=== PATIENT | male | born 1985 | race Caucasian/White ===

== ENCOUNTER 2016-05-11 21:46 | Inpatient (IN) | payer SELFPAY ==
[~2016-05-11] VITALS: Ht 190.5 cm; Wt 89.1 kg
[~2016-05-11 21:46] MED LIST: AMPH20TA PO; no home medications
[2016-05-11 23:14] LABS: MEAN CORPUSCULAR HEMOGLOBIN 33.8 pg (27.0-33.0); MEAN CORPUSCULAR HGB CONC 34.4 g/dl (32.0-36.5); MEAN CORPUSCULAR VOLUME 98.4 fl (80.0-96.0); RED CELL DISTRIBUTION WIDTH 12.7 % (11.5-14.5); WHITE BLOOD COUNT 6.1 K/mm3 (4.0-10.0)
[2016-05-11 23:33] LABS: AMPHETAMINES LEVEL URINE NEGATIVE (NEGATIVE); BENZODIAZEPINES URINE NEGATIVE (NEGATIVE); COCAINE METABOLITE URINE NEGATIVE (NEGATIVE); CONTROL LINE INT CTR LINE PRESENT; METHADONE URINE NEGATIVE (NEGATIVE); OPIATES URINE NEGATIVE (NEGATIVE); TRICYCLIC ANTIDEPRESS URINE NEGATIVE (NEGATIVE)
[2016-05-11 23:46] LABS: ALBUMIN 4.2 GM/DL (3.2-5.2); ALBUMIN/GLOBULIN RATIO 1.24 (1.00-1.93); ALKALINE PHOSPHATASE 93 U/L (45-117); ALT/SGPT 66 U/L (12-78); ANION GAP 8 MEQ/L (8-16); AST/SGOT 39 U/L (15-37); BILIRUBIN,DIRECT < 0.1 MG/DL (0.0-0.2); BILIRUBIN,TOTAL 0.2 MG/DL (0.2-1.0); BLOOD UREA NITROGEN 6 MG/DL (7-18); CALCIUM LEVEL 8.8 MG/DL (8.5-10.1); CARBON DIOXIDE LEVEL 32 MEQ/L (21-32); CHLORIDE LEVEL 103 MEQ/L (98-107); CREATININE FOR GFR 0.99 MG/DL (0.70-1.30); GLOMERULAR FILTRATION RATE > 60.0 (>60); GLUCOSE, FASTING 104 MG/DL (70-105); POTASSIUM SERUM 4.4 MEQ/L (3.5-5.1); SODIUM LEVEL 143 MEQ/L (136-145); TOTAL PROTEIN 7.6 GM/DL (6.4-8.2)
[2016-05-11] MEDS ORDERED: OXAZEPAM 15 MG CAP As Ordered ONE (23:55)
[2016-05-12] MEDS ORDERED: MAALOX 30 ML SUSP *UDC PO PRN (16:30)
[2016-05-12] MEDS ORDERED: MOM 30ML SUSPENSION UDC PO PRN (16:30)
[2016-05-12 20:35] VITALS: BP 145/91
--- NOTE | 2016-05-12 20:39 | EDDOCDS ---
Physician Documentation [facility] Name: Melchor Leary Age: 30 yrs Sex: Male : 1985 Arrival Date: 05/11/2016 Time: 21:46 Bed OBSERVATION Private MD: No Pcp Disposition: 05/12/16 16:59 Hospitalization ordered by Elio Pro for Inpatient Admission. Preliminary diagnosis is Suicidal ideations. - Bed requested for Admit. - Status is Inpatient Admission. rw1 - Condition is Stable. - Problem is new. - Symptoms are unchanged. HPI: 05/11 22:23 This 30 yrs old Male presents to ER via Walkin/Carried/Asstd with complaints pc of Psych Problem. 22:23 The history is obtained from the patient. A reliable history and/or examination was not pc able to be obtained, due to the patient's level of intoxication. He is an alcoholic, drinking beer daily at high volumes, starting 9am every day with withdrawal symptoms by 1pm if he doesn't. He has been rehab in the past but none recently and was not able to stay sober for more than a week. He says he has no where to go, that he has burned every bridge. He told the materials handling coordinator that he hears Jerri Roger's voice calling him a skateboarder, but when pressed about the voices in more detail, he turns away and says "I don't know". He does not appear to be responding to internal stimuli. He denies SI or HI. 22:28 The patient has experienced similar episodes in the past, with an ED visit for alcohol pc intoxication last year and an admission to [facility] in 2014 for depression with SI. The patient has not recently seen a physician. Historical: - Allergies: no known allergies; - Home Meds: 1. none - PMHx: Alcoholism; - PSHx: none; - The history from nurses notes was reviewed: and I agree with what is documented. - Social history: Smoking status: Patient uses tobacco products, heavy tobacco smoker. Patient uses alcohol on a daily basis. 12 beer/day. street drugs, marijuana, No barriers to communication noted, The patient speaks fluent Polish. - : The pt / caregiver states he / she is not on anticoagulants. Home medication list is obtained from the patient. - Hospitalizations: : No recent hospitalization is reported. - Exposure Risk Screening:: None identified. - Immunization history:: Last tetanus immunization: up to date. - Family history: Not pertinent. - Social history:: the patient smokes cigarettes the patient drinks alcohol, including recently, regularly to excess, the patient does not use illicit drugs. ROS: 22:28 All systems are negative except as listed. The psychiatric and neurological components pc are also addressed in the HPI. Exam: 22:28 General Appearance: alert, no acute distress, strong odor of alcohol in room and on pc breath. 22:28 ENT: ear, nose and throat normal, pharynx normal. 22:28 Eyes: pupils equal, round and reactive to light, extraocular motions intact. 22:28 Neck: The exam reveals no acute abnormalities. ROM is normal and painless. No nuchal rigidity is noted.. 22:28 Respiratory: breathing is even and unlabored, breath sounds are normal. 22:28 Cardiovascular: regular pulse rate, regular heart rhythm, normal heart sounds, equal and full pulses bilaterally. 22:28 Abdomen: soft, non-tender, no organomegaly, normal bowel sounds, no masses appreciated, no hernias palpated with/without gravity or Valsalva 22:28 Skin: skin color is normal, warm, dry. 22:28 Extremities: The extremities have a grossly normal appearance, are non-tender, without acute ROM abnormalities. 22:28 Neuro: alert, oriented to person, place and time, cranial nerves normal as tested, no motor deficits, no sensory deficits. 22:28 Psych: mood is normal, affect is appropriate. Vital Signs: 21:49 BP 149 / 87; Pulse 109; Resp 18; Temp 97.6(O); Pulse Ox 98% on R/A; Weight 86.18 kg / ct3 189.99 lbs (R); Height 6 ft. 3 in. (190.50 cm) (R); Pain 0/10; 13 00:00 BP 139 / 74; Pulse 91; Resp 16; Pulse Ox 98% ; Pain 0/10; slm 06:07 BP 144 / 69; Pulse 86; Resp 18; Temp 95.6; Pulse Ox 96% ; Pain 0/10; slm 17:28 BP 128 / 77; Pulse 60; Resp 18; Temp 98.0(O); Pulse Ox 97% on R/A; Pain 0/10; rn1 20:19 BP 142 / 86; Pulse 68; Resp 16; Temp 97.8(O); Pulse Ox 96% on R/A; rw1 05/11 21:49 Body Mass Index 23.75 (86.18 kg, 190.50 cm) ct3 MDM: 05/11 22:24 Acetaminophen Level Ordered. EDMS 22:24 Basic Metabolic Profile Ordered. EDMS 22:24 Complete Blood Count Ordered. EDMS 22:24 Drug Eval Toxicology ED Only Ordered. EDMS 22:24 Ethyl Alcohol (ethanol) Ordered. EDMS 22:24 Liver Profile Ordered. EDMS 22:24 Salicylate Level Ordered. EDMS 22:24 Thyroid Stimulating Hormone Ordered. EDMS 22:28 Differential diagnosis: alcohol intoxication, Substance Abuse homeless, reported pc auditory hallucinations. Plan: labs, PFS eval. 23:24 Complete Blood Count Reviewed. pc 23:35 Drug Eval Toxicology ED Only Reviewed. pc 23:48 Acetaminophen Level Reviewed. pc 23:48 Basic Metabolic Profile Reviewed. pc 23:48 Ethyl Alcohol (ethanol) Reviewed. pc 23:48 Liver Profile Reviewed. pc 23:48 Salicylate Level Reviewed. pc 23:48 Thyroid Stimulating Hormone Reviewed. pc 23:49 Oxazepam 30 mg PO once ordered. pc 23:51 Consult PFS/PSA/Woven Label Designer ordered. [facility] 23:51 Consult PFS/PSA/Woven Label Designer: Patient's case requires discussion with on-call [facility] Psychiatrist ordered. 23:51 PSA/PFS to call Nursing Pt Sitter, to enter patient data on [place] Safe Act if patient [facility] involuntarily admitted or transferred for SI or HI ordered. 23:51 Confirm accurate psychiatric medication list and times of last dosage ordered. [facility] 23:51 Detain Pt Until Medically/PFS Cleared ordered. [facility] 05/12 01:05 Financial registration complete. [facility] 01:58 PENDING SALE TO [facility] Payment Agreement was scanned into [employer] and attached to record. [facility] 05:15 REGULAR DIET PLASTIC LAMAS+DIET ordered. EDMS 07:53 ED course: pt signed out to me. pending psych disposition. pt with no complaints. mlg. ml 11:17 REGULAR DIET PLASTIC LAMAS+DIET ordered. EDMS 16:35 Admit to [facility]: ordered. EDMS 16:35 REGULAR DIET ordered. EDMS 17:07 REGULAR DIET PLASTIC LAMAS+DIET ordered. EDMS 17:17 E Legal paperwork was scanned into [employer] and attached to record. dev 19:21 Consult PFS/PSA/Woven Label Designer: Patient's case requires discussion with on-call [facility] Psychiatrist complete. 19:21 PSA/PFS to call Nursing Pt Sitter, to enter patient data on [place] Safe Act if patient jfb involuntarily admitted or transferred for SI or HI complete. 19:22 Consult PFS/PSA/Woven Label Designer complete. [facility]fb Administered Medications: 05/11 23:59 Drug: Oxazepam 30 mg [oxazepam 15 mg capsule (2 caps)] Route: PO; [facility] 05/12 20:22 Follow up: Response: No Adverse Reaction rw1 Signatures: Dispatcher [employer] EDMS Wilfrido Martinez MD MD pc Lundborg-Gray, Maja, MD MD ml LaFontaine, Jon, [facility] Blank LPN LPN rw1 Mark Anthony Marie, DO [id number] Pura Segovia RN RN rs3 Becca Ayala, [facility] Alanna Sung LPN [facility] The chart was reviewed and I authenticate all verbal orders and agree with the evaluation and treatment provided.Attachments: 01:58 PENDING SALE TO [facility] Payment Agreement [facility] MTDD
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
[2016-05-12] MEDS: NICOTINE 21MG/24HR 1 EA TRANSDERMAL TD SCH (22:23)
[2016-05-12] MEDS: chlordiazePOXIDE 25 MG CAP PO PRN (22:26)
[2016-05-12] MEDS: ACETAMINOPHEN TAB 650MG DOSE (2X325MG) PO PRN (22:27)
[2016-05-12] MEDS: traZODone 50 MG TAB PO PRN (22:57)
[2016-05-13 07:10] VITALS: BP 137/77
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
[2016-05-13] MEDS: NICOTINE 21MG/24HR 1 EA TRANSDERMAL TD SCH (09:32)
--- NOTE | 2016-05-13 10:54 | HPEPDOC ---
Medical History and Physical Date of Admission May 12, 2016 at 20:35 History and Physical PCP: None ATTENDING: Dr. Damian Manriquez HPI: 30yoM admitted to [facility] for unspecified depressive disorder, being medically examined today. No acute medical complaints today. Denies any fevers, chills, weakness, fatigue, REDDY, CP, SOB, cough, palpitations, abdominal pain, N/V /D or changes in bowel or bladder habits. PMHx: History of alcohol use Tobacco use PSHX: Denies SOCHX: Resides in: [facility] Marital Status: Single Kids: 3 Employment: [employer], currently unemployed Tobacco use: One pack per day ETOH: At least 12 beers per day, usually more for the past 1-1/2-2 years Illicit Drugs: Marijuana IV Drug Use: Denies Tattoos done unprofessionally: 1 FAMHX: Mother: Alive, history of leukemia Father: Alive, chronic bronchitis, alcoholism Siblings: 2 brothers, 2 sisters Alive, history of alcoholism. One brother history of heart failure. One sister heroin overdose. Children: Alive, well Unexpected deaths due to medical reasons: None. ROS: As noted in HPI, otherwise 11pt ROS of systems reviewed and unremarkable. PE: GEN: 30yoM, appears stated age. Well-nourished, well developed. No acute distress. Alert and oriented x 3. Pleasant, interactive. HEENT: Normocephalic, atraumatic. Pupils are equal, round, and reactive to light. Extraocular movements are intact. No nystagmus appreciated. Sclera are nonicteric. Conjunctiva without injection. Nose midline. Nasal turbinates without bogginess. EACs both patent BL. TMs both visualized and snow with good cone of light, no bulging or erythema. No facial asymmetry. Moist mucous membranes. Dentition fair. Pharynx pink and moist, no cobblestoning. Neck supple , trachea midline. No lymphadenopathy or thyromegaly appreciated. CHEST: Regular rate and rhythm, +S1, +S2 LUNGS: Clear to auscultation bilaterally. No wheezes, rales, or rhonchi. Breathing appears symmetric and easy. Patient is speaking in full sentences. No accessory muscle use. ABD: Round, soft, non-tender, non-distended. +Bowel sounds throughout. No rebound or guarding. No costovertebral angle tenderness. EXT: Pulses 2+ bilaterally dorsalis pedis and radial. No lower extremity edema appreciated. SKIN: [place], dry, warm. Capillary refill <2sec. No rashes. NEURO: Alert and oriented x 3. Cranial nerves III-XII are intact. No focal deficits appreciated. EKG: Pending. A&P: 30yoM admitted to [facility] for unspecified depressive disorder, 1. Psych. Plan per Psychiatry. Obtain baseline EKG to assure the safety of psychiatric medications as they can prolong the QT interval. 2. Nicotine dependence. Patch available. 3. History of tattoo done unprofessionally. Patient agrees to HIV and hepatitis screening. 4. Follow up. No Primary Care Provider. Will attempt to establish PCP on discharge. 5. Patient agrees to influenza vaccination. 6. Staff member present throughout exam, Jaison villareal. Vital Signs Vital Signs Label Value Date Time Patient Temperature 97.7 degrees F 05/13/16 0710 Temperature Source Tympanic 05/13/16 0710 Pulse 74 05/13/16 0710 Respiratory Rate 18 bpm 05/13/16 0710 Blood Pressure Assessment 137/77 (97) 05/13/16 0710 Laboratory Data Labs 24H Item Value Date Time White Blood Count 6.1 K/mm3 05/11/16 2300 Red Blood Count 4.81 M/mm3 05/11/16 2300 Hemoglobin 16.3 g/dl 05/11/16 2300 Hematocrit 47.3 % 05/11/16 2300 Mean Corpuscular Volume 98.4 fl H 05/11/16 2300 Mean Corpuscular Hemoglobin 33.8 pg H 05/11/16 230 Mean Corpuscular Hemoglobin Concent 34.4 g/dl 05/11/16 230 Red Cell Distribution Width 12.7 % 05/11/16 230 Platelet Count 267 k/mm3 05/11/16 230 Sodium Level 143 MEQ/L 05/11/16 2300 Potassium Level 4.4 MEQ/L 05/11/16 230 Chloride Level 103 MEQ/L 05/11/16 230 Carbon Dioxide Level 32 MEQ/L 05/11/16 230 Anion Gap 8 MEQ/L 05/11/16 230 Blood Urea Nitrogen 6 MG/DL L 05/11/16 2300 Creatinine 0.99 MG/DL 05/11/162299 Glomerular Filtration Rate > 60.0 05/11/162299 Fasting Glucose 104 MG/DL 05/11/160 Calcium Level 8.8 MG/DL 05/11/162299 Total Bilirubin 0.2 MG/DL 05/11/162299 Direct Bilirubin < 0.1 MG/DL 05/11/162299 Aspartate Amino Transf (AST/SGOT) 39 U/L H 05/11/162299 Alanine Aminotransferase (ALT/SGPT) 66 U/L 05/11/162299 Alkaline Phosphatase 93 U/L 05/11/162299 Total Protein 7.6 GM/DL 05/11/162299 Albumin 4.2 GM/DL 05/11/162299 Albumin/Globulin Ratio 1.24 05/11/162299 Thyroid Stimulating Hormone (TSH) 1.040 uIU/ML 05/11/162299 Salicylates Level 3.0 MG/DL L 05/11/162299 Urine Opiates Screen NEGATIVE 05/11/162306 Urine Methadone Screen NEGATIVE 05/11/162306 Acetaminophen Level < 2.0 UG/ML L 05/11/162299 Urine Barbiturates, Qualitative NEGATIVE 05/11/162306 Urine Tricyclic Antidepressants NEGATIVE 05/11/162306 Urine Amphetamine Level NEGATIVE 05/11/162306 Urine Benzodiazepines Screen NEGATIVE 05/11/162306 Urine Cocaine Metabolite NEGATIVE 05/11/162306 Urine Cannabinoids NEGATIVE 05/11/162306 Ethyl Alcohol Level 0.245 % H 05/11/162299 Home Medications No Active Prescriptions or Reported Meds Allergies Coded Allergies: No Known Allergies (Unverified , 07/19/14) Pauly Polo May 13, 2016 10:54
[2016-05-13] MEDS ORDERED: INFLUENZA QUADRIVALENT PF VACCINE 0.5ML SYRINGE/VIAL (90686) IM ONE (11:00)
[2016-05-13] MEDS: chlordiazePOXIDE 25 MG CAP PO PRN (11:09)
[2016-05-13 11:28] VITALS: BP 124/84
[2016-05-13 14:12] LABS: CONTROL LINE INT CTR LINE PRESENT; HIV SCRN NEGATIVE (NEGATIVE); HIV SCRN1 NEGATIVE (NEGATIVE)
[2016-05-13 18:00] VITALS: BP 131/73
[2016-05-13] MEDS: PALIPERIDONE 3 MG ER TAB (INVEGA) PO SCH (20:51)
[2016-05-13] MEDS: traZODone 50 MG TAB PO PRN (21:19)
[2016-05-14 06:40] VITALS: BP 123/80
--- NOTE | 2016-05-14 06:45 | IPNPDOC ---
[facility] Progress Note Progress Note DATE OF SERVICE: 05/14/16 Subjective: Patient reports ongoing anxiety today. Patient is aware court has been postponed. She reports he and his girlfriend have talked and he may be able to return to her home on discharge. Patient expresses his confusion as to why Jerri Roger would be contacting him. He reports thinking that the [place] government was testing new technology on him and allowing Jerri Roger to talk to him telepathically. He had the idea that maybe she wanted to him. Patient felt that the only way the voices would stop as if he found Jerri asked her why she was speaking to him telepathically. Patient was educated on the pathophysiology of schizophrenia. Patient acknowledged understanding and was reassured this was a medical issue. Patient does not hold onto these paranoid ideations as delusions. He is reassured and his confusion seems resolved. Patient educated on the importance of medication compliance. Patient is medication compliant. He reports no medication side effects since initiating Invega. He reports improved sleep. Appetite is within normal limits. Patient reports no REDDY, CP, Abd pain, or N/V/C/D. Objective: VITAL SIGNS: See below. NEW TEST RESULTS: None CURRENT MEDICATIONS: See below. MENTAL STATUS EXAMINATION: Patient is a 28-year-old male who appears stated age, dressed in hospital attire, anxious but cooperative Speech: Is regular rate and rhythm, spontaneous Thought processes: Linear and goal-directed Thought content: Very confused as to why he is hearing the voice of Jerri oRger Orientation: Alert and oriented to time, place and person and situation Recent and remote memory: Intact. Immediate short-term and long-term memory is: intact. Attention span and concentration: fair. Language: Normal. Fund of knowledge: good. Mood: Dysthymic Affect: Anxious Assessment: -Schizophrenia -Alcohol use disorder, severe -Alcohol withdrawal -Cannabis use disorder, severe Plan: ----- 1.~ ~ Patient was admitted on a 9.30 legal status, 2.~ ~ With patients permission, family contacted and database expanded. 3.~ ~ Continue Invega 3 mg by mouth daily at bedtime for psychosis. ~ ~ Continue Trazodone 100 mg by mouth daily at bedtime when necessary insomnia. 4.~ ~ Patient will be provided with protected environment. 5.~ ~ Patient will be treated with individual, group, and milieu therapies. 6.~ ~ Patient will receive supportive psych-education. 7.~ ~ Outpatient follow-up treatment will be strongly recommended. Estimated length of stay between 5-7 days TIME SPENT: [30] minutes. Vital Signs Vital Signs Date Time Temp Pulse Resp B/P Pulse Ox O2 Delivery O2 Flow Rate FiO2 05/14/16 06:40 96.5 72 18 123/80 05/12/16 20:35 97 Room Air Current Medications Current Medications Acetaminophen (Tylenol Tab) 650 mg Q6HP PRN PO HEADACHE or DISCOMFORT Last administered on 05/12/16 22:27; Start 05/12/16 at 16:30; Stop 06/11/16 at 16:29 Al Hydrox/Mg Hydrox/Simethicone (Mylanta) 30 ml Q4HP PRN PO HEARTBURN/ INDIGESTION; Start 05/12/16 at 16:30; Stop 06/11/16 at 16:29 Chlordiazepoxide (Librium) 25 mg QIDP PRN PO ALCOHOL WITHDRAWLS Last administered on 05/13/16 11:09; Start 05/12/16 at 16:30; Stop 05/19/16 at 16:29 Folic Acid (Folic Acid) 1 mg DAILY PO ; Start 05/14/16 at 09:00; Stop 06/13/16 at 08:59; Status UNV Home Med (Med Rec Complete!) ASDIRECTED XX ; Start 05/12/16 at 17:15; Stop at 20:39; Status DC Magnesium Hydroxide (Milk Of Magnesia) 30 ml DAILYPRN PRN PO CONSTIPATION; Start 05/12/16 at 16:30; Stop 06/11/16 at 16:29 Multivitamins (Theragram-M) 1 tab DAILY PO ; Start 05/14/16 at 09:00; Stop 06/13 at 08:59; Status UNV Nicotine (Nicoderm Cq 21mg) 1 patch DAILY TD Last administered on 05/13/16 09: 32; Start 05/12/16 at 09:00; Stop 06/11/16 at 08:59 Paliperidone (Invega) 3 mg QHS PO Last administered on 05/13/16 20:51; Start 05/13/16 at 21:00; Stop 06/12/16 at 20:59 Thiamine HCl (Thiamine HCl) 100 mg DAILY PO ; Start 05/14/16 at 09:00; Stop at 08:59; Status UNV Trazodone HCl (Desyrel) 100 mg QHSP PRN PO INSOMNIA Last administered on 21:19; Start 05/12/16 at 16:30; Stop 06/11/16 at 16:29 Allergies Coded Allergies: No Known Allergies (Unverified , 07/19/14) YENIFER CONRAD MD May 14, 2016 06:45
[2016-05-14] MEDS: NICOTINE 21MG/24HR 1 EA TRANSDERMAL TD SCH (09:58)
[2016-05-14] MEDS: THIAMINE 100 MG TAB PO SCH (09:58)
[2016-05-14] MEDS: MULTIVITAMINS/MINERALS THERAP 1 TAB PO SCH (09:58)
[2016-05-14] MEDS: FOLIC ACID 1 MG TAB PO SCH (09:58)
[2016-05-14] MEDS: ACETAMINOPHEN TAB 650MG DOSE (2X325MG) PO PRN ×2 (10:00→20:28)
[2016-05-14 18:00] VITALS: BP 120/65
[2016-05-14] MEDS: PALIPERIDONE 3 MG ER TAB (INVEGA) PO SCH (20:27)
[2016-05-14] MEDS: traZODone 50 MG TAB PO PRN (20:27)
--- NOTE | 2016-05-14 21:39 | EDDOCDS ---
Physician Documentation [facility] Name: Melchor Leary Age: 30 yrs Sex: Male : 1985 Arrival Date: 05/11/2016 Time: 21:46 Bed OBSERVATION Private MD: No Pcp Disposition: 05/12/16 16:59 Hospitalization ordered by Elio Pro for Inpatient Admission. Preliminary diagnosis is Suicidal ideations. - Bed requested for Admit. - Status is Inpatient Admission. rw1 - Condition is Stable. - Problem is new. - Symptoms are unchanged. HPI: 05/11 22:23 This 30 yrs old Male presents to ER via Walkin/Carried/Asstd with complaints pc of Psych Problem. 22:23 The history is obtained from the patient. A reliable history and/or examination was not pc able to be obtained, due to the patient's level of intoxication. He is an alcoholic, drinking beer daily at high volumes, starting 9am every day with withdrawal symptoms by 1pm if he doesn't. He has been rehab in the past but none recently and was not able to stay sober for more than a week. He says he has no where to go, that he has burned every bridge. He told the rehab trainer that he hears Jerri Roger's voice calling him a skateboarder, but when pressed about the voices in more detail, he turns away and says "I don't know". He does not appear to be responding to internal stimuli. He denies SI or HI. 22:28 The patient has experienced similar episodes in the past, with an ED visit for alcohol pc intoxication last year and an admission to [facility] in 2014 for depression with SI. The patient has not recently seen a physician. Historical: - Allergies: no known allergies; - Home Meds: 1. none - PMHx: Alcoholism; - PSHx: none; - The history from nurses notes was reviewed: and I agree with what is documented. - Social history: Smoking status: Patient uses tobacco products, heavy tobacco smoker. Patient uses alcohol on a daily basis. 12 beer/day. street drugs, marijuana, No barriers to communication noted, The patient speaks fluent Czech. - : The pt / caregiver states he / she is not on anticoagulants. Home medication list is obtained from the patient. - Hospitalizations: : No recent hospitalization is reported. - Exposure Risk Screening:: None identified. - Immunization history:: Last tetanus immunization: up to date. - Family history: Not pertinent. - Social history:: the patient smokes cigarettes the patient drinks alcohol, including recently, regularly to excess, the patient does not use illicit drugs. ROS: 22:28 All systems are negative except as listed. The psychiatric and neurological components pc are also addressed in the HPI. Exam: 22:28 General Appearance: alert, no acute distress, strong odor of alcohol in room and on pc breath. 22:28 ENT: ear, nose and throat normal, pharynx normal. 22:28 Eyes: pupils equal, round and reactive to light, extraocular motions intact. 22:28 Neck: The exam reveals no acute abnormalities. ROM is normal and painless. No nuchal rigidity is noted.. 22:28 Respiratory: breathing is even and unlabored, breath sounds are normal. 22:28 Cardiovascular: regular pulse rate, regular heart rhythm, normal heart sounds, equal and full pulses bilaterally. 22:28 Abdomen: soft, non-tender, no organomegaly, normal bowel sounds, no masses appreciated, no hernias palpated with/without gravity or Valsalva 22:28 Skin: skin color is normal, warm, dry. 22:28 Extremities: The extremities have a grossly normal appearance, are non-tender, without acute ROM abnormalities. 22:28 Neuro: alert, oriented to person, place and time, cranial nerves normal as tested, no motor deficits, no sensory deficits. 22:28 Psych: mood is normal, affect is appropriate. Vital Signs: 21:49 BP 149 / 87; Pulse 109; Resp 18; Temp 97.6(O); Pulse Ox 98% on R/A; Weight 86.18 kg / ct3 189.99 lbs (R); Height 6 ft. 3 in. (190.50 cm) (R); Pain 0/10; 13 00:00 BP 139 / 74; Pulse 91; Resp 16; Pulse Ox 98% ; Pain 0/10; slm 06:07 BP 144 / 69; Pulse 86; Resp 18; Temp 95.6; Pulse Ox 96% ; Pain 0/10; slm 17:28 BP 128 / 77; Pulse 60; Resp 18; Temp 98.0(O); Pulse Ox 97% on R/A; Pain 0/10; rn1 20:19 BP 142 / 86; Pulse 68; Resp 16; Temp 97.8(O); Pulse Ox 96% on R/A; rw1 05/11 21:49 Body Mass Index 23.75 (86.18 kg, 190.50 cm) ct3 MDM: 05/11 22:24 Acetaminophen Level Ordered. EDMS 22:24 Basic Metabolic Profile Ordered. EDMS 22:24 Complete Blood Count Ordered. EDMS 22:24 Drug Eval Toxicology ED Only Ordered. EDMS 22:24 Ethyl Alcohol (ethanol) Ordered. EDMS 22:24 Liver Profile Ordered. EDMS 22:24 Salicylate Level Ordered. EDMS 22:24 Thyroid Stimulating Hormone Ordered. EDMS 22:28 Differential diagnosis: alcohol intoxication, Substance Abuse homeless, reported pc auditory hallucinations. Plan: labs, PFS eval. 23:24 Complete Blood Count Reviewed. pc 23:35 Drug Eval Toxicology ED Only Reviewed. pc 23:48 Acetaminophen Level Reviewed. pc 23:48 Basic Metabolic Profile Reviewed. pc 23:48 Ethyl Alcohol (ethanol) Reviewed. pc 23:48 Liver Profile Reviewed. pc 23:48 Salicylate Level Reviewed. pc 23:48 Thyroid Stimulating Hormone Reviewed. pc 23:49 Oxazepam 30 mg PO once ordered. pc 23:51 Consult PFS/PSA/Tree And Shrub Technician ordered. [facility] 23:51 Consult PFS/PSA/Tree And Shrub Technician: Patient's case requires discussion with on-call [facility] Psychiatrist ordered. 23:51 PSA/PFS to call Nursing Oil Paint Shader, to enter patient data on [place] Safe Act if patient [facility] involuntarily admitted or transferred for SI or HI ordered. 23:51 Confirm accurate psychiatric medication list and times of last dosage ordered. [facility] 23:51 Detain Pt Until Medically/PFS Cleared ordered. [facility] 05/12 01:05 Financial registration complete. [facility] 01:58 [facility] Payment Agreement was scanned into [employer] and attached to record. [facility] 05:15 REGULAR DIET PLASTIC LAMAS+DIET ordered. EDMS 07:53 ED course: pt signed out to me. pending psych disposition. pt with no complaints. mlg. ml 11:17 REGULAR DIET PLASTIC LAMAS+DIET ordered. EDMS 16:35 Admit to [facility]: ordered. EDMS 16:35 REGULAR DIET ordered. EDMS 17:07 REGULAR DIET PLASTIC LAMAS+DIET ordered. EDMS 17:17 E Legal paperwork was scanned into [employer] and attached to record. dev 19:21 Consult PFS/PSA/Tree And Shrub Technician: Patient's case requires discussion with on-call [facility] Psychiatrist complete. 19:21 PSA/PFS to call Nursing Oil Paint Shader, to enter patient data on [place] Safe [place] if patient jfb involuntarily admitted or transferred for SI or HI complete. 19:22 Consult PFS/PSA/Tree And Shrub Technician complete. jfb Administered Medications: 05/11 23:59 Drug: Oxazepam 30 mg [oxazepam 15 mg capsule (2 caps)] Route: PO; [facility] 05/12 20:22 Follow up: Response: No Adverse Reaction rw1 Signatures: Dispatcher [employer] EDMS Wilfrido Martinez MD MD pc Lundborg-Gray, Maja, MD MD ml LaFontaine, Jon, [facility] [place] Blank LPN LPN rw1 Mark Anthony Marie, DO mm11 Pura Segovia RN RN rs3 Becca Ayala, [facility]ah[facility] Jiang [facility] Alanna Sung LPN [facility] The chart was reviewed and I authenticate all verbal orders and agree with the evaluation and treatment provided.Attachments: 01:58 [facility] Payment Agreement [facility] Chart Complete MTDD
--- NOTE | 2016-05-14 21:39 | EDDOCDS ---
Physician Documentation [facility] Name: Melchor Leary Age: 30 yrs Sex: Male : 1985 Arrival Date: 05/11/2016 Time: 21:46 Bed OBSERVATION Private MD: No Pcp Disposition: 05/12/16 16:59 Hospitalization ordered by Elio Pro for Inpatient Admission. Preliminary diagnosis is Suicidal ideations. - Bed requested for Admit. - Status is Inpatient Admission. rw1 - Condition is Stable. - Problem is new. - Symptoms are unchanged. HPI: 05/11 22:23 This 30 yrs old Male presents to ER via Walkin/Carried/Asstd with complaints pc of Psych Problem. 22:23 The history is obtained from the patient. A reliable history and/or examination was not pc able to be obtained, due to the patient's level of intoxication. He is an alcoholic, drinking beer daily at high volumes, starting 9am every day with withdrawal symptoms by 1pm if he doesn't. He has been rehab in the past but none recently and was not able to stay sober for more than a week. He says he has no where to go, that he has burned every bridge. He told the bologna lacer that he hears Jerri Roger's voice calling him a skateboarder, but when pressed about the voices in more detail, he turns away and says "I don't know". He does not appear to be responding to internal stimuli. He denies SI or HI. 22:28 The patient has experienced similar episodes in the past, with an ED visit for alcohol pc intoxication last year and an admission to [facility] in 2014 for depression with SI. The patient has not recently seen a physician. Historical: - Allergies: no known allergies; - Home Meds: 1. none - PMHx: Alcoholism; - PSHx: none; - The history from nurses notes was reviewed: and I agree with what is documented. - Social history: Smoking status: Patient uses tobacco products, heavy tobacco smoker. Patient uses alcohol on a daily basis. 12 beer/day. street drugs, marijuana, No barriers to communication noted, The patient speaks fluent Slovenian. - : The pt / caregiver states he / she is not on anticoagulants. Home medication list is obtained from the patient. - Hospitalizations: : No recent hospitalization is reported. - Exposure Risk Screening:: None identified. - Immunization history:: Last tetanus immunization: up to date. - Family history: Not pertinent. - Social history:: the patient smokes cigarettes the patient drinks alcohol, including recently, regularly to excess, the patient does not use illicit drugs. ROS: 22:28 All systems are negative except as listed. The psychiatric and neurological components pc are also addressed in the HPI. Exam: 22:28 General Appearance: alert, no acute distress, strong odor of alcohol in room and on pc breath. 22:28 ENT: ear, nose and throat normal, pharynx normal. 22:28 Eyes: pupils equal, round and reactive to light, extraocular motions intact. 22:28 Neck: The exam reveals no acute abnormalities. ROM is normal and painless. No nuchal rigidity is noted.. 22:28 Respiratory: breathing is even and unlabored, breath sounds are normal. 22:28 Cardiovascular: regular pulse rate, regular heart rhythm, normal heart sounds, equal and full pulses bilaterally. 22:28 Abdomen: soft, non-tender, no organomegaly, normal bowel sounds, no masses appreciated, no hernias palpated with/without gravity or Valsalva 22:28 Skin: skin color is normal, warm, dry. 22:28 Extremities: The extremities have a grossly normal appearance, are non-tender, without acute ROM abnormalities. 22:28 Neuro: alert, oriented to person, place and time, cranial nerves normal as tested, no motor deficits, no sensory deficits. 22:28 Psych: mood is normal, affect is appropriate. Vital Signs: 21:49 BP 149 / 87; Pulse 109; Resp 18; Temp 97.6(O); Pulse Ox 98% on R/A; Weight 86.18 kg / ct3 189.99 lbs (R); Height 6 ft. 3 in. (190.50 cm) (R); Pain 0/10; 13 00:00 BP 139 / 74; Pulse 91; Resp 16; Pulse Ox 98% ; Pain 0/10; slm 06:07 BP 144 / 69; Pulse 86; Resp 18; Temp 95.6; Pulse Ox 96% ; Pain 0/10; slm 17:28 BP 128 / 77; Pulse 60; Resp 18; Temp 98.0(O); Pulse Ox 97% on R/A; Pain 0/10; rn1 20:19 BP 142 / 86; Pulse 68; Resp 16; Temp 97.8(O); Pulse Ox 96% on R/A; rw1 05/11 21:49 Body Mass Index 23.75 (86.18 kg, 190.50 cm) ct3 MDM: 05/11 22:24 Acetaminophen Level Ordered. EDMS 22:24 Basic Metabolic Profile Ordered. EDMS 22:24 Complete Blood Count Ordered. EDMS 22:24 Drug Eval Toxicology ED Only Ordered. EDMS 22:24 Ethyl Alcohol (ethanol) Ordered. EDMS 22:24 Liver Profile Ordered. EDMS 22:24 Salicylate Level Ordered. EDMS 22:24 Thyroid Stimulating Hormone Ordered. EDMS 22:28 Differential diagnosis: alcohol intoxication, Substance Abuse homeless, reported pc auditory hallucinations. Plan: labs, PFS eval. 23:24 Complete Blood Count Reviewed. pc 23:35 Drug Eval Toxicology ED Only Reviewed. pc 23:48 Acetaminophen Level Reviewed. pc 23:48 Basic Metabolic Profile Reviewed. pc 23:48 Ethyl Alcohol (ethanol) Reviewed. pc 23:48 Liver Profile Reviewed. pc 23:48 Salicylate Level Reviewed. pc 23:48 Thyroid Stimulating Hormone Reviewed. pc 23:49 Oxazepam 30 mg PO once ordered. pc 23:51 Consult PFS/PSA/Hot Saw Operator ordered. [facility] 23:51 Consult PFS/PSA/Hot Saw Operator: Patient's case requires discussion with on-call [facility] Psychiatrist ordered. 23:51 PSA/PFS to call Nursing Assurance Senior, to enter patient data on [place] Safe Act if patient [facility] involuntarily admitted or transferred for SI or HI ordered. 23:51 Confirm accurate psychiatric medication list and times of last dosage ordered. [facility] 23:51 Detain Pt Until Medically/PFS Cleared ordered. [facility] 05/12 01:05 Financial registration complete. [facility] 01:58 [facility] Payment Agreement was scanned into [employer] and attached to record. [facility] 05:15 REGULAR DIET PLASTIC LAMAS+DIET ordered. EDMS 07:53 ED course: pt signed out to me. pending psych disposition. pt with no complaints. mlg. ml 11:17 REGULAR DIET PLASTIC LAMAS+DIET ordered. EDMS 16:35 Admit to [facility]: ordered. EDMS 16:35 REGULAR DIET ordered. EDMS 17:07 REGULAR DIET PLASTIC LAMAS+DIET ordered. EDMS 17:17 E Legal paperwork was scanned into [employer] and attached to record. dev 19:21 Consult PFS/PSA/Hot Saw Operator: Patient's case requires discussion with on-call [facility] Psychiatrist complete. 19:21 PSA/PFS to call Nursing Assurance Senior, to enter patient data [place] if patient jfb involuntarily admitted or transferred for SI or HI complete. 19:22 Consult PFS/PSA/Hot Saw Operator complete. jfb Administered Medications: 05/11 23:59 Drug: Oxazepam 30 mg [oxazepam 15 mg capsule (2 caps)] Route: PO; [facility] 05/12 20:22 Follow up: Response: No Adverse Reaction rw1 Signatures: Dispatcher [employer] EDMS Wilfrido Martinez MD MD pc Lundborg-Gray, Maja, MD MD ml LaFontaine, Jon, [facility] [place] Blank LPN LPN rw1 Mark Anthony Marie, DO mm11 Pura Segovia RN RN rs3 Becca Ayala, [facility]ah[facility] Jiang [facility] Alanna Sung LPN [facility] The chart was reviewed and I authenticate all verbal orders and agree with the evaluation and treatment provided.Attachments: 01:58 [facility] Payment Agreement [facility] Chart Complete MTDD
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
[2016-05-15 07:00] VITALS: BP 144/75
[2016-05-15 07:19] LABS: MEAN CORPUSCULAR HEMOGLOBIN 34.9 pg (27.0-33.0); MEAN CORPUSCULAR HGB CONC 34.5 g/dl (32.0-36.5); MEAN CORPUSCULAR VOLUME 101.2 fl (80.0-96.0); RED CELL DISTRIBUTION WIDTH 12.4 % (11.5-14.5); WHITE BLOOD COUNT 5.1 K/mm3 (4.0-10.0)
[2016-05-15 07:38] LABS: ALBUMIN 3.8 GM/DL (3.2-5.2); ALBUMIN/GLOBULIN RATIO 1.27 (1.00-1.93); ALKALINE PHOSPHATASE 83 U/L (45-117); ALT/SGPT 43 U/L (12-78); ANION GAP 8 MEQ/L (8-16); AST/SGOT 22 U/L (15-37); BILIRUBIN,TOTAL 0.3 MG/DL (0.2-1.0); BLOOD UREA NITROGEN 5 MG/DL (7-18); CALCIUM LEVEL 9.2 MG/DL (8.5-10.1); CARBON DIOXIDE LEVEL 28 MEQ/L (21-32); CHLORIDE LEVEL 107 MEQ/L (98-107); CREATININE FOR GFR 0.72 MG/DL (0.70-1.30); GLOMERULAR FILTRATION RATE > 60.0 (>60); GLUCOSE, FASTING 86 MG/DL (70-105); POTASSIUM SERUM 4.1 MEQ/L (3.5-5.1); SODIUM LEVEL 143 MEQ/L (136-145); TOTAL PROTEIN 6.8 GM/DL (6.4-8.2)
[2016-05-15] MEDS: NICOTINE 21MG/24HR 1 EA TRANSDERMAL TD SCH (08:55)
[2016-05-15] MEDS: MULTIVITAMINS/MINERALS THERAP 1 TAB PO SCH (08:55)
[2016-05-15] MEDS: FOLIC ACID 1 MG TAB PO SCH (08:55)
[2016-05-15] MEDS: THIAMINE 100 MG TAB PO SCH (08:55)
--- NOTE | 2016-05-15 08:55 | ECGEPIP ---
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
[2016-05-15 18:00] VITALS: BP 146/83
[2016-05-15] MEDS ORDERED: chlordiazePOXIDE 25 MG CAP PO PRN (19:15)
[2016-05-15] MEDS: PALIPERIDONE 3 MG ER TAB (INVEGA) PO SCH (20:16)
[2016-05-15] MEDS ORDERED: traZODone 50 MG TAB PO SCH (21:00)
--- NOTE | 2016-05-16 02:52 | IPNPDOC ---
[facility] Progress Note Progress Note DATE OF SERVICE: 05/15/16 Subjective: Patient reports improving mood today. Patient is happy to report a significant improvement in his auditory hallucinations. She expresses further interest in understanding the pathophysiology of schizophrenia. He would like this explain to his girlfriend and his family. He reports feeling stable for discharge. He would like this provider to sit in on the family meeting scheduled prior to discharge. He would like this provider to help in explaining his medical condition to his girlfriend and his family. Patient is medication compliant. He reports no medication side effects on Invega. He reported diminished sleep last night. Appetite is within normal limits. She denies SI and HI. Patient denies VH. Patient displays no other signs of psychosis, outside of auditory hallucinations, and none are reported. Objective: VITAL SIGNS: See below. NEW TEST RESULTS: None CURRENT MEDICATIONS: See below. MENTAL STATUS EXAMINATION: Patient is a 28-year-old male who appears stated age, dressed in hospital attire, calm and cooperative Speech: Is regular rate and rhythm, spontaneous Thought processes: Linear and goal-directed Thought content: Interested to hear more about the pathophysiology of schizophrenia that he could explain it to his family Orientation: Alert and oriented to time, place and person and situation Recent and remote memory: Intact. Immediate short-term and long-term memory is: intact. Attention span and concentration: fair. Language: Normal. Fund of knowledge: good. Mood: Euthymic Affect: Broad Assessment: -Schizophrenia -Alcohol use disorder, severe -Alcohol withdrawal -Cannabis use disorder, severe Plan: ----- 1.~ ~ Patient was admitted on a 9.30 legal status, 2.~ ~ With patients permission, family contacted and database expanded. 3.~ ~ Continue Invega 3 mg by mouth daily at bedtime for psychosis, as patient reports an improvement in the intrusiveness and intensity of his AHs. ~ ~Increase Trazodone from 100 mg to 150 mg by mouth daily at bedtime when necessary for insomnia. 4.~ ~ Patient will be provided with protected environment. 5.~ ~ Patient will be treated with individual, group, and milieu therapies. 6.~ ~ Patient will receive supportive psych-education. 7.~ ~ Outpatient follow-up treatment will be strongly recommended. Estimated length of stay between 5-7 days TIME SPENT: [30] minutes. Vital Signs Vital Signs Date Time Temp Pulse Resp B/P Pulse Ox O2 Delivery O2 Flow Rate FiO2 05/15/16 18:00 97.8 67 16 146/83 05/12/16 20:35 97 Room Air Laboratory Data 24H Labs Laboratory Tests 2 05/15/16 06:27: Blood Urea Nitrogen 5L, Creatinine 0.72, Sodium Level 143, Potassium Level 4.1, Chloride Level 107, Carbon Dioxide Level 28, Calcium Level 9.2, Aspartate Amino Transf (AST/SGOT) 22, Alanine Aminotransferase (ALT/SGPT) 43, Alkaline Phosphatase 83, Total Bilirubin 0.3, Total Protein 6.8, Albumin 3.8, Albumin/ Globulin Ratio 1.27, Anion Gap 8, Glomerular Filtration Rate > 60.0 CBC/BMP Laboratory Tests 05/15/16 06:27 Calcium Level 9.2, Aspartate Amino Transf (AST/SGOT) 22, Alanine Aminotransferase (ALT/SGPT) 43, Alkaline Phosphatase 83, Total Bilirubin 0.3, Total Protein 6.8, Albumin 3.8, Red Blood Count 4.41, Mean Corpuscular Volume 101.2 H, Mean Corpuscular Hemoglobin 34.9 H, Mean Corpuscular Hemoglobin Concent 34.5, Red Cell Distribution Width 12.4 Current Medications Current Medications Acetaminophen (Tylenol Tab) 650 mg Q6HP PRN PO HEADACHE or DISCOMFORT Last administered on 05/14/16 20:28; Start 05/12/16 at 16:30; Stop 06/11/16 at 16:29 Al Hydrox/Mg Hydrox/Simethicone (Mylanta) 30 ml Q4HP PRN PO HEARTBURN/ INDIGESTION; Start 05/12/16 at 16:30; Stop 06/11/16 at 16:29 Chlordiazepoxide (Librium) 25 mg BIDP PRN PO ALCOHOL WITHDRAWL; Start 05/15/16 at 19:15; Stop 05/22/16 at 19:14 Chlordiazepoxide (Librium) 25 mg QIDP PRN PO ALCOHOL WITHDRAWLS Last administered on 05/13/16 11:09; Start 05/12/16 at 16:30; Stop 05/15/16 at 19:07 ; Status DC Folic Acid (Folic Acid) 1 mg DAILY PO Last administered on 05/15/16 08:55; Start 05/14/16 at 09:00; Stop 06/13/16 at 08:59 Home Med (Med Rec Complete!) ASDIRECTED XX ; Start 05/12/16 at 17:15; Stop at 20:39; Status DC Magnesium Hydroxide (Milk Of Magnesia) 30 ml DAILYPRN PRN PO CONSTIPATION; Start 05/12/16 at 16:30; Stop 06/11/16 at 16:29 Multivitamins (Theragram-M) 1 tab DAILY PO Last administered on 05/15/16 08:55 ; Start 05/14/16 at 09:00; Stop 06/13/16 at 08:59 Nicotine (Nicoderm Cq 21mg) 1 patch DAILY TD Last administered on 05/15/16 08: 55; Start 05/12/16 at 09:00; Stop 06/11/16 at 08:59 Paliperidone (Invega) 3 mg QHS PO Last administered on 05/15/16 20:16; Start 05/13/16 at 21:00; Stop 06/12/16 at 20:59 Thiamine HCl (Thiamine HCl) 100 mg DAILY PO Last administered on 05/15/16 08: 55; Start 05/14/16 at 09:00; Stop 06/13/16 at 08:59 Trazodone HCl (Desyrel) 100 mg QHSP PRN PO INSOMNIA Last administered on 20:27; Start 05/12/16 at 16:30; Stop 05/15/16 at 19:03; Status DC Trazodone HCl (Desyrel) 150 mg QHS PO Last administered on 05/15/16 20:17; Start 05/15/16 at 21:00; Stop 06/14/16 at 20:59 Allergies Coded Allergies: No Known Allergies (Unverified , 07/19/14) YENIFER CONRAD MD May 16, 2016 02:52
[2016-05-16 06:27] VITALS: BP 135/67
[2016-05-16 08:09] LABS: HBsAG SCREEN Negative (Negative)
[2016-05-16] MEDS: NICOTINE 21MG/24HR 1 EA TRANSDERMAL TD SCH (08:13)
[2016-05-16] MEDS: FOLIC ACID 1 MG TAB PO SCH (08:14)
[2016-05-16] MEDS: THIAMINE 100 MG TAB PO SCH (08:14)
[2016-05-16] MEDS: MULTIVITAMINS/MINERALS THERAP 1 TAB PO SCH (08:14)
[2016-05-16] MEDS ORDERED: NICO21PAT TD (08:38)
[2016-05-16] MEDS ORDERED: PALI1TAB2 PO (10:07)
[2016-05-16] MEDS ORDERED: TRAZO50TA PO (10:08)
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
[2016-05-19] MEDS ORDERED: TRAZ150T14 PO (11:31)
== END 2016-05-16 11:40 | disposition home or self-care (01) | DRG 750 ==
LOC: M ED 21:46 → M PSY 05-12 20:35
PROVIDERS: ADMIT Psychiatry & Neurology Psychiatry; ATTEND Psychiatry & Neurology Psychiatry
DX: F20.9 Schizophrenia, unspecified (principal); Z59.0 Homelessness; F10.239 Alcohol dependence with withdrawal, unspecified; F12.20 Cannabis dependence, uncomplicated; F17.210 Nicotine dependence, cigarettes, uncomplicated; Z81.1 Family history of alcohol abuse and dependence; Z65.3 Problems related to other legal circumstances; Z63.4 Disappearance and death of family member

== ENCOUNTER → 2016-08-18 | Outpatient (CLI) | payer MEDICAID ==
[~2016-08-18] MED LIST changes: +NICO21PAT TD; +PALI1TAB2 PO; +TRAZ150T14 PO; +TRAZO50TA PO
== END ==
LOC: M OUTALCOH 07:56
PROVIDERS: ATTEND Psychiatry & Neurology Psychiatry
DX: Z13.9 Encounter for screening, unspecified (principal); F10.20 Alcohol dependence, uncomplicated

== ENCOUNTER → 2016-09-12 | Day surgery (SDC) | payer OTHER ==
[~2016-09-12] VITALS: Ht 188 cm; Wt 86.2 kg
[~2016-09-12] MED LIST changes: +GLYCOPYRROLATE INJ 0.2 MG/ML 2 ML VIAL As Ordered ONE; +IBUPROFEN 800 MG TAB PO PRN; +LIDOCAINE 2% INJ 100 MG/5 ML SDV (FOR ANES.) As Ordered ONE; +LIDOCAINE W/EPINEPHRINE 1% 20ML VIAL As Ordered ONE; +LR 1,000 ML IV ONE; +LR 1,000 ML IV SCH; +METHYLENE BLUE 0.5% (5MG/ML) 10 ML AMP (PROVAYBLUE)(Q9968 PER 1MG) As Ordered ONE; +METOCLOPRAMIDE INJ 10MG/2ML VIAL (J2765) As Ordered ONE; +MIDAZOLAM INJ 2 MG/2 ML VIAL (J2250) As Ordered ONE; +NEOSTIGMINE 1MG/ML 5 ML SYRINGE (J2710) As Ordered ONE; +ONDANSETRON 4MG/2ML VIAL (J2405) As Ordered ONE; +ONDANSETRON 4MG/2ML VIAL (J2405) IV PRN; +OXYMETAZOLINE NASAL SPRAY (AFRIN) As Ordered ONE; +PERCOCET 5MG/325MG TAB As Ordered ONE; +PERCOCET 5MG/325MG TAB PO PRN; +PROPOFOL 200 MG/20 ML VIAL As Ordered ONE; +ROCURONIUM BROMIDE 50 MG/5 ML VIAL/SYRINGE As Ordered ONE; -TRAZ150T14 PO; +TRAZ1TAB14 PO; +WELLTAB40 PO; +dexameTHASONE 4 MG/ML 1ML VIAL (J1100) As Ordered ONE; +fentaNYL 100 MCG/2 ML INJECTION (J3010) As Ordered ONE; +fentaNYL 250 MCG/5 ML INJECTION (J3010) As Ordered ONE
[2016-09-12] MEDS: fentaNYL 100 MCG/2 ML INJECTION (J3010) IV PRN ×4 (10:30→10:45)
[2016-09-12 11:40] VITALS: BP 169/99
--- NOTE | 2016-10-09 15:20 | RO ---
DATE OF PROCEDURE: 09/12/2016 PREPROCEDURE DIAGNOSIS: Deviated nasal septum, chronic rhinitis. POSTPROCEDURE DIAGNOSES: Deviated nasal septum, chronic rhinitis. SURGEON: Jefry Chowdhury MD PROJECT BUYER: ANESTHESIA: PROCEDURE: Septoplasty with partial reduction of inferior turbinates. INDICATIONS: 30-year-old who presents with a history of nasal obstruction for years. DESCRIPTION OF PROCEDURE: Satisfactory general endotracheal anesthesia administered. The nose was prepared for surgery by placing cotton-soaked pledgets with Afrin solution to nasal cavity bilaterally. 1% Xylocaine with 1:100,000 epinephrine was used to inject into the nasal septum and inferior turbinates. A Mauri incision was made on the left side of the nose. A mucoperichondrial flap and envelope was created on the left side of the nasal septum and carried down to the junction of the bony and cartilaginous septum. This was then with an elevator, and an envelope was then created on the right side of the septum. A Immanuel scissors was used to make a cut high in the perpendicular plate in the midportion of the vomer, and a central segment of the bony septum was resected. Next, with the round knife on the Gianna elevator, a strip of cartilage was resected from the floor of the nose, mobilizing the quadrilateral cartilage and creating a swinging door. Then, a central segment of cartilaginous septum was resected, preserving a 1 cm dorsal and caudal strut. Double-action rongeur was used to take down deflected portions of the perpendicular plate, as well. Finally, the maxillary crest spur was taken down after elevating mucoperiosteum off both sides of it with a chisel. A segment of the resected cartilage was morselized and placed back into the septal envelope. The incision was closed using an interrupted #5-0 chromic suture. Then, a #4-0 plain suture was placed in a [id number] fashion through the two leaves of mucoperichondrium to appose them. Next, the inferior turbinates were medially infractured. A #15 blade was used to make an incision on the anterior tip of the inferior turbinate. With a [place] elevator, a mucoperiosteal tunnel was created on the medial side of the turbinate. Then, the microdebrider with a 2.9 mm blade was inserted into the tunnel, and the underlying turbinate bone was weakened and partially resected using the microdebrider. Then, the turbinate was laterally outfractured. The posteroinferior tip of the turbinate was then cauterized with suction cautery. At the completion of surgery, Taylor splints were placed into the nose and sewn to the columella with a #2-0 Prolene suture. The pharyngeal pack, which had been placed at the beginning of the procedure was removed, the throat was suctioned. The patient was then awakened, extubated, and sent to recovery in satisfactory condition. He will be discharged home on Percocet for pain, doxycycline 100 mg twice a day. He will be seen back in 3 days for splint removal.
== END | disposition home or self-care (01) ==
LOC: M SDC 08:21
PROVIDERS: ATTEND Specialist
DX: J34.2 Deviated nasal septum (principal); J31.0 Chronic rhinitis; F41.9 Anxiety disorder, unspecified; F32.9 Major depressive disorder, single episode, unspecified; F43.10 Post-traumatic stress disorder, unspecified; F17.210 Nicotine dependence, cigarettes, uncomplicated; Z79.899 Other long term (current) drug therapy

== ENCOUNTER 2016-09-25 14:00 | Outpatient (RCR) | payer MEDICAID ==
[~2016-09-25 14:00] MED LIST changes: -GLYCOPYRROLATE INJ 0.2 MG/ML 2 ML VIAL As Ordered ONE; -IBUPROFEN 800 MG TAB PO PRN; -LIDOCAINE 2% INJ 100 MG/5 ML SDV (FOR ANES.) As Ordered ONE; -LIDOCAINE W/EPINEPHRINE 1% 20ML VIAL As Ordered ONE; -LR 1,000 ML IV ONE; -LR 1,000 ML IV SCH; -METHYLENE BLUE 0.5% (5MG/ML) 10 ML AMP (PROVAYBLUE)(Q9968 PER 1MG) As Ordered ONE; -METOCLOPRAMIDE INJ 10MG/2ML VIAL (J2765) As Ordered ONE; -MIDAZOLAM INJ 2 MG/2 ML VIAL (J2250) As Ordered ONE; -NEOSTIGMINE 1MG/ML 5 ML SYRINGE (J2710) As Ordered ONE; -ONDANSETRON 4MG/2ML VIAL (J2405) As Ordered ONE; -ONDANSETRON 4MG/2ML VIAL (J2405) IV PRN; -OXYMETAZOLINE NASAL SPRAY (AFRIN) As Ordered ONE; -PERCOCET 5MG/325MG TAB As Ordered ONE; -PERCOCET 5MG/325MG TAB PO PRN; -PROPOFOL 200 MG/20 ML VIAL As Ordered ONE; -ROCURONIUM BROMIDE 50 MG/5 ML VIAL/SYRINGE As Ordered ONE; -dexameTHASONE 4 MG/ML 1ML VIAL (J1100) As Ordered ONE; -fentaNYL 100 MCG/2 ML INJECTION (J3010) As Ordered ONE; -fentaNYL 250 MCG/5 ML INJECTION (J3010) As Ordered ONE
== END 2016-09-26 ==
LOC: M OUTALCOH 14:00
PROVIDERS: ATTEND Psychiatry & Neurology Psychiatry
DX: F10.20 Alcohol dependence, uncomplicated (principal); F17.200 Nicotine dependence, unspecified, uncomplicated

== ENCOUNTER → 2016-10-27 | Outpatient (RCR) | payer MEDICAID | LOC: M OUTALCOH 10-02 15:54 | PROVIDERS: ATTEND Psychiatry & Neurology Psychiatry | DX: F10.20 Alcohol dependence, uncomplicated (principal); F17.200 Nicotine dependence, unspecified, uncomplicated ==

== ENCOUNTER 2016-11-03 08:45 | Outpatient (RCR) | payer MEDICAID | END 2016-11-27 | LOC: M OUTALCOH 08:45 | PROVIDERS: ATTEND Psychiatry & Neurology Psychiatry | DX: F10.20 Alcohol dependence, uncomplicated (principal); F17.200 Nicotine dependence, unspecified, uncomplicated ==

== ENCOUNTER → 2016-12-31 | Outpatient (CLI) | payer OTHER ==
[2016-12-31 13:15] LABS: MEAN CORPUSCULAR HEMOGLOBIN 33.4 pg (27.0-33.0); MEAN CORPUSCULAR HGB CONC 35.4 g/dl (32.0-36.5); MEAN CORPUSCULAR VOLUME 94.3 fl (80.0-96.0); RED CELL DISTRIBUTION WIDTH 11.9 % (11.5-14.5); WHITE BLOOD COUNT 4.4 10^3/uL (4.0-10.0)
--- NOTE | 2016-12-31 13:33 | REP ---
Chest x-ray: Two views. History: Anemia. Findings: The lungs are well inflated and clear. Heart size is normal. Pleural angles are sharp. There is some minimal levoconvex curve in the lower thoracic spine. No other significant bony finding. Pulmonary vasculature is not increased. Impression: No active disease. Signed by Woo Flores MD 12/31/2016 03:55 P
[2016-12-31 13:35] LABS: ALBUMIN 4.2 GM/DL (3.2-5.2); ALBUMIN/GLOBULIN RATIO 1.35 (1.00-1.93); ALKALINE PHOSPHATASE 70 U/L (45-117); ALT/SGPT 29 U/L (12-78); ANION GAP 5 MEQ/L (8-16); AST/SGOT 15 U/L (15-37); BILIRUBIN,TOTAL 0.5 MG/DL (0.2-1.0); BLOOD UREA NITROGEN 6 MG/DL (7-18); CALCIUM LEVEL 9.1 MG/DL (8.5-10.1); CARBON DIOXIDE LEVEL 32 MEQ/L (21-32); CHLORIDE LEVEL 101 MEQ/L (98-107); CHOLESTEROL LEVEL 150 MG/DL (<200); CREATININE FOR GFR 0.99 MG/DL (0.70-1.30); GLOMERULAR FILTRATION RATE > 60.0 (>60); GLUCOSE, FASTING 82 MG/DL (70-105); POTASSIUM SERUM 4.1 MEQ/L (3.5-5.1); SODIUM LEVEL 138 MEQ/L (136-145); TOTAL PROTEIN 7.3 GM/DL (6.4-8.2); TRIGLYCERIDES LEVEL 86 MG/DL (<150)
--- NOTE | 2016-12-31 20:59 | ECGEPIP ---
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
== END ==
LOC: M LAB 11:49
PROVIDERS: ATTEND Family Medicine
DX: D64.9 Anemia, unspecified (principal)

== ENCOUNTER 2017-12-28 19:43 | Emergency (ER) | payer OTHER ==
[2017-12-28] MEDS: NORCO, ANEXSIA 5/325MG TABLET (HYDROcodone/ACETAMINOPHEN) PO ×2 (22:28→22:30)
== END 2017-12-28 22:40 | disposition home or self-care (01) ==
LOC: M ED 19:43
DX: S62.613A Displaced fracture of proximal phalanx of left middle finger, initial encounter for closed fracture (principal); W10.9XXA Fall (on) (from) unspecified stairs and steps, initial encounter; Y92.410 Unspecified street and highway as the place of occurrence of the external cause; Y93.51 Activity, roller skating (inline) and skateboarding; Y99.9 Unspecified external cause status; Z79.899 Other long term (current) drug therapy
CPT/HCPCS: 73130

== ENCOUNTER → 2019-04-07 | Outpatient (CLI) | payer OTHER ==
[~2019-04-07] MED LIST changes: +ADDE20CA3 PO; +HYDR-3715 PO; +TRAZ1TAB10 PO; -TRAZO50TA PO
--- NOTE | 2019-04-08 04:03 | REP ---
Clinical: Evaluate for Cholelithiasis. Technique: Real time snow scale ultrasound examination using curved array transducer. Findings: Liver and visualized pancreas are normal in contour, size, echogenicity without focal hepatic or pancreatic lesion identified. The gallbladder is normal and without gallstones, wall thickening, or pericholecystic fluid. No biliary ductal dilatation is appreciated and the common bile duct measures 2.9 mm diameter. The right kidney is normal in reniform shape without hydronephrosis and measures 12.2 x 6.4 x 4.7 cm. No ascites. Impression: Normal right upper quadrant ultrasound. Electronically Signed by Fede Bauman MD 04/08/2019 03:54 A
== END ==
LOC: M RAD 07:09
PROVIDERS: ATTEND Family Medicine
DX: R19.01 Right upper quadrant abdominal swelling, mass and lump (principal)

== ENCOUNTER → 2020-03-27 | Outpatient (CLI) | payer SELFPAY | LOC: M LABSMTC 10:27 | PROVIDERS: ATTEND Pediatrics | DX: Z20.828 Contact with and (suspected) exposure to other viral communicable diseases (principal) ==

== ENCOUNTER → 2020-05-08 | Outpatient (CLI) | payer SELFPAY | LOC: M LABSMTC 10:38 | PROVIDERS: ATTEND Pediatrics | DX: Z11.52 Encounter for screening for COVID-19 (principal) ==

== ENCOUNTER → 2020-05-20 | Outpatient (CLI) | payer SELFPAY | LOC: M LABSMTC 11:36 | PROVIDERS: ATTEND Pediatrics | DX: Z20.822 Contact with and (suspected) exposure to COVID-19 (principal) ==

== ENCOUNTER → 2020-06-03 | Outpatient (CLI) | payer SELFPAY | LOC: M LABSMTC 11:32 | PROVIDERS: ATTEND Pediatrics | DX: Z11.52 Encounter for screening for COVID-19 (principal) ==

== ENCOUNTER 2020-06-09 01:39 | Emergency (ER) | payer MEDICARE, OTHER ==
[~2020-06-09] VITALS: Ht 188 cm; Wt 83.2 kg
[2020-06-09] MEDS ORDERED: MIRT-62 (02:15)
[2020-06-09 02:41] LABS: HEMATOCRIT 41.9 % (42.0-52.0); HEMOGLOBIN 15.3 g/dl (13.5-17.5); MEAN CORPUSCULAR HEMOGLOBIN 34.5 pg (27.0-33.0); MEAN CORPUSCULAR HGB CONC 36.5 g/dl (32.0-36.5); MEAN CORPUSCULAR VOLUME 94.6 fl (80.0-96.0); PLATELET COUNT, AUTOMATED 208 10^3/uL (150-450); RED BLOOD COUNT 4.43 10^6/uL (4.30-6.10); WHITE BLOOD COUNT 6.5 10^3/uL (4.0-10.0)
[2020-06-09 03:02] LABS: AMPHETAMINES LEVEL URINE POSITIVE (NEGATIVE); BARBITURATES URINE NEGATIVE (NEGATIVE); BENZODIAZEPINES URINE NEGATIVE (NEGATIVE); CANNABINOIDS URINE NEGATIVE (NEGATIVE); COCAINE METABOLITE URINE NEGATIVE (NEGATIVE); METHADONE URINE NEGATIVE (NEGATIVE); OPIATES URINE NEGATIVE (NEGATIVE); PHENCYCLIDINE URINE NEGATIVE (NEGATIVE)
[2020-06-09 03:40] LABS: ACETAMINOPHEN LEVEL < 2.0 UG/ML (10.0-30.0); ALBUMIN 4.3 GM/DL (3.2-5.2); ALT/SGPT 42 U/L (12-78); BILIRUBIN,DIRECT 0.2 MG/DL (0.0-0.2); BILIRUBIN,TOTAL 0.4 MG/DL (0.2-1.0); BLOOD UREA NITROGEN 5 MG/DL (7-18); CALCIUM LEVEL 8.1 MG/DL (8.5-10.1); CARBON DIOXIDE LEVEL 22 MEQ/L (21-32); CHLORIDE LEVEL 104 MEQ/L (98-107); CREATININE FOR GFR 0.74 MG/DL (0.70-1.30); ETHYL ALCOHOL (ETHANOL) 0.381 % (0.000-0.010); GLOMERULAR FILTRATION RATE > 60.0 (>60); GLUCOSE, FASTING 97 MG/DL (70-100); POTASSIUM SERUM 3.7 MEQ/L (3.5-5.1); SALICYLATE LEVEL 3.5 MG/DL (5.0-30.0); SODIUM LEVEL 137 MEQ/L (136-145)
[2020-06-09 14:34] VITALS: BP 126/62
== END 2020-06-09 14:36 | disposition home or self-care (01) ==
LOC: M ED 01:39
DX: F10.120 Alcohol abuse with intoxication, uncomplicated (principal); R45.851 Suicidal ideations; F32.9 Major depressive disorder, single episode, unspecified; F20.9 Schizophrenia, unspecified; F41.9 Anxiety disorder, unspecified; Z79.899 Other long term (current) drug therapy

== ENCOUNTER 2021-12-01 22:32 | Inpatient (IN) | payer MEDICARE, OTHER ==
[~2021-12-01] VITALS: Ht 188 cm; Wt 80.5 kg
[~2021-12-01 22:32] MED LIST changes: +MIRT-62
[2021-12-01] MEDS ORDERED: TRAZ-252 PO (22:41)
[2021-12-01 23:32] LABS: HEMATOCRIT 41.1 % (42.0-52.0); HEMOGLOBIN 14.7 g/dl (13.5-17.5); MEAN CORPUSCULAR HEMOGLOBIN 33.2 pg (27.0-33.0); MEAN CORPUSCULAR HGB CONC 35.8 g/dl (32.0-36.5); MEAN CORPUSCULAR VOLUME 92.8 fl (80.0-96.0); PLATELET COUNT, AUTOMATED 255 10^3/uL (150-450); RED BLOOD COUNT 4.43 10^6/uL (4.30-6.10); WHITE BLOOD COUNT 7.1 10^3/uL (4.0-10.0)
[2021-12-02 00:10] LABS: AMPHETAMINES LEVEL URINE POSITIVE (NEGATIVE); BARBITURATES URINE NEGATIVE (NEGATIVE); BENZODIAZEPINES URINE NEGATIVE (NEGATIVE); CANNABINOIDS URINE NEGATIVE (NEGATIVE); COCAINE METABOLITE URINE NEGATIVE (NEGATIVE); METHADONE URINE NEGATIVE (NEGATIVE); OPIATES URINE NEGATIVE (NEGATIVE); PHENCYCLIDINE URINE NEGATIVE (NEGATIVE)
[2021-12-02 00:16] LABS: ACETAMINOPHEN LEVEL < 2.0 UG/ML (10.0-30.0); ALBUMIN 4.2 GM/DL (3.2-5.2); ALT/SGPT 32 U/L (12-78); BILIRUBIN,DIRECT 0.3 MG/DL (0.0-0.2); BILIRUBIN,TOTAL 0.7 MG/DL (0.2-1.0); BLOOD UREA NITROGEN 10 MG/DL (7-18); CALCIUM LEVEL 8.6 MG/DL (8.5-10.1); CARBON DIOXIDE LEVEL 24 MEQ/L (21-32); CHLORIDE LEVEL 102 MEQ/L (98-107); ETHYL ALCOHOL (ETHANOL) 0.046 % (0.000-0.010); GLOMERULAR FILTRATION RATE > 60.0 (>60); GLUCOSE, FASTING 93 MG/DL (70-100); POTASSIUM SERUM 3.4 MEQ/L (3.5-5.1); SALICYLATE LEVEL 2.7 MG/DL (5.0-30.0); SODIUM LEVEL 138 MEQ/L (136-145); THYROID STIMULATING HORMONE 0.682 uIU/ML (0.358-3.740); TOTAL PROTEIN 7.3 GM/DL (6.4-8.2)
[2021-12-02 00:19] LABS: RSV AMPLIFICATION NEGATIVE (NEGATIVE)
[2021-12-02] MEDS ORDERED: TRAZ-257 PO (06:35)
[2021-12-02] MEDS ORDERED: ADDE20TA PO (06:35)
[2021-12-02] MEDS ORDERED: PALI1TAB2 PO (06:35)
[2021-12-02] MEDS ORDERED: HYDR50CA2 PO (06:35)
[2021-12-02] MEDS ORDERED: MED REC COMMENT (06:36)
[2021-12-02] MEDS ORDERED: HOME MED LIST COMPLETE! XX SCH (06:40)
[2021-12-02] MEDS ORDERED: PALIPERIDONE 3 MG ER TAB (INVEGA) PO SCH (21:00)
[2021-12-02] MEDS: traZODone 100 MG TAB PO SCH (22:16)
[2021-12-02] MEDS: hydrOXYzine 50 MG TAB PO PRN (22:16)
[2021-12-02] MEDS ORDERED: NICOTINE 21MG/24HR 1 EA TRANSDERMAL TD ONE (22:35)
[2021-12-03] MEDS ORDERED: ADDERALL 5 MG TAB PO SCH ×2 (12:00→13:30)
[2021-12-03] MEDS ORDERED: NICOTINE 21MG/24HR 1 EA TRANSDERMAL TD ONE ×2 (13:15→18:00)
[2021-12-03] MEDS: hydrOXYzine 50 MG TAB PO PRN (13:22)
[2021-12-03] MEDS: ADDERALL 5 MG TAB PO SCH (17:49)
[2021-12-03] MEDS ORDERED: PALIPERIDONE 6 MG ER TAB (INVEGA) PO SCH (21:00)
[2021-12-03] MEDS ORDERED: PALIPERIDONE 3 MG ER TAB (INVEGA) PO SCH (21:00)
[2021-12-03] MEDS: traZODone 100 MG TAB PO SCH (22:36)
[2021-12-04] MEDS: ADDERALL 5 MG TAB PO SCH ×3 (08:00→19:08)
[2021-12-04] MEDS ORDERED: NICOTINE 21MG/24HR 1 EA TRANSDERMAL TD ONE (09:50)
[2021-12-04] MEDS ORDERED: MAALOX 30 ML SUSP *UDC PO PRN (17:25)
[2021-12-04] MEDS ORDERED: ACETAMINOPHEN TAB 650MG DOSE (2X325MG) PO PRN (17:25)
[2021-12-04] MEDS ORDERED: MOM 30ML SUSPENSION UDC PO PRN (17:25)
[2021-12-04 18:09] VITALS: BP 142/86
[2021-12-04] MEDS: traZODone 100 MG TAB PO PRN (20:59)
[2021-12-04] MEDS: PALIPERIDONE 3 MG ER TAB (INVEGA) PO SCH (20:59)
[2021-12-05 06:45] VITALS: BP 126/71
[2021-12-05] MEDS: hydrOXYzine 50 MG TAB PO PRN ×2 (08:21→17:34)
[2021-12-05] MEDS: ADDERALL 5 MG TAB PO SCH ×3 (08:22→17:32)
[2021-12-05] MEDS: NICOTINE 21MG/24HR 1 EA TRANSDERMAL TD SCH (09:34)
[2021-12-05] MEDS: busPIRone 5 MG TAB PO SCH ×2 (10:46→21:53)
[2021-12-05] MEDS: PALIPERIDONE 3 MG ER TAB (INVEGA) PO SCH ×2 (10:46→21:53)
[2021-12-05 17:55] VITALS: BP 140/88
[2021-12-06] MEDS: hydrOXYzine 50 MG TAB PO PRN (04:31)
[2021-12-06] MEDS ORDERED: LORazepam 1 MG TAB PO ONE (05:00)
[2021-12-06] MEDS: PALIPERIDONE 3 MG ER TAB (INVEGA) PO SCH ×2 (09:30→20:30)
[2021-12-06] MEDS: ADDERALL 5 MG TAB PO SCH ×4 (09:31→17:59)
[2021-12-06] MEDS: NICOTINE 21MG/24HR 1 EA TRANSDERMAL TD SCH (09:31)
[2021-12-06] MEDS: busPIRone 5 MG TAB PO SCH ×2 (09:31→20:30)
[2021-12-06] MEDS: OLANZapine ORAL DISINTEGRATING TAB 5MG PO PRN ×2 (11:19→22:08)
[2021-12-06 16:30] VITALS: BP 118/69
[2021-12-06] MEDS: traZODone 100 MG TAB PO PRN (20:30)
[2021-12-07 06:53] VITALS: BP 97/63
[2021-12-07] MEDS: ADDERALL 5 MG TAB PO SCH ×3 (08:33→17:27)
[2021-12-07] MEDS: NICOTINE 21MG/24HR 1 EA TRANSDERMAL TD SCH (08:33)
[2021-12-07] MEDS: busPIRone 5 MG TAB PO SCH ×2 (08:34→20:27)
[2021-12-07] MEDS: PALIPERIDONE 3 MG ER TAB (INVEGA) PO SCH ×2 (08:34→20:27)
[2021-12-07] MEDS: OLANZapine ORAL DISINTEGRATING TAB 5MG PO PRN ×2 (13:42→18:47)
[2021-12-07 18:18] VITALS: BP 128/64
[2021-12-07] MEDS: traZODone 100 MG TAB PO PRN (20:27)
[2021-12-08 06:27] VITALS: BP 128/61
[2021-12-08] MEDS: ADDERALL 5 MG TAB PO SCH ×3 (07:49→17:32)
[2021-12-08] MEDS: busPIRone 5 MG TAB PO SCH ×2 (07:50→20:31)
[2021-12-08] MEDS: PALIPERIDONE 3 MG ER TAB (INVEGA) PO SCH (07:50)
[2021-12-08] MEDS: NICOTINE 21MG/24HR 1 EA TRANSDERMAL TD SCH (07:51)
[2021-12-08] MEDS: OLANZapine ORAL DISINTEGRATING TAB 5MG PO PRN (12:46)
[2021-12-08 17:43] VITALS: BP 124/66
[2021-12-08] MEDS: traZODone 100 MG TAB PO PRN (20:31)
[2021-12-08] MEDS: PALIPERIDONE 6 MG ER TAB (INVEGA) PO SCH (20:31)
[2021-12-09 08:07] VITALS: BP 116/65
[2021-12-09] MEDS: NICOTINE 21MG/24HR 1 EA TRANSDERMAL TD SCH (08:23)
[2021-12-09] MEDS: ADDERALL 5 MG TAB PO SCH ×3 (08:23→17:09)
[2021-12-09] MEDS: PALIPERIDONE 6 MG ER TAB (INVEGA) PO SCH ×2 (08:23→20:17)
[2021-12-09] MEDS: busPIRone 5 MG TAB PO SCH ×2 (08:24→20:17)
[2021-12-09] MEDS: hydrOXYzine 50 MG TAB PO PRN ×2 (10:30→20:17)
[2021-12-09 16:15] VITALS: BP 129/69
[2021-12-09] MEDS: traZODone 100 MG TAB PO PRN (20:17)
[2021-12-10 06:31] VITALS: BP 143/84
[2021-12-10] MEDS: NICOTINE 21MG/24HR 1 EA TRANSDERMAL TD SCH (07:46)
[2021-12-10] MEDS: ADDERALL 5 MG TAB PO SCH ×3 (07:47→17:24)
[2021-12-10] MEDS: PALIPERIDONE 6 MG ER TAB (INVEGA) PO SCH ×2 (07:47→20:29)
[2021-12-10] MEDS: busPIRone 5 MG TAB PO SCH ×2 (07:47→20:29)
[2021-12-10 07:48] LABS: CHOLESTEROL RISK RATIO 2.615 (<5)
[2021-12-10] MEDS: OLANZapine ORAL DISINTEGRATING TAB 5MG PO PRN (12:08)
[2021-12-10] MEDS: hydrOXYzine 50 MG TAB PO PRN (15:27)
[2021-12-10 16:30] VITALS: BP 123/67
[2021-12-10] MEDS: traZODone 100 MG TAB PO PRN (20:29)
[2021-12-11 06:40] VITALS: BP 100/56
[2021-12-11] MEDS: ADDERALL 5 MG TAB PO SCH ×3 (08:40→16:55)
[2021-12-11] MEDS: PALIPERIDONE 6 MG ER TAB (INVEGA) PO SCH ×2 (08:40→20:57)
[2021-12-11] MEDS: busPIRone 5 MG TAB PO SCH ×2 (08:40→20:57)
[2021-12-11] MEDS: NICOTINE 21MG/24HR 1 EA TRANSDERMAL TD SCH (08:40)
[2021-12-11] MEDS: hydrOXYzine 50 MG TAB PO PRN (11:46)
[2021-12-11] MEDS: OLANZapine ORAL DISINTEGRATING TAB 5MG PO PRN (14:48)
[2021-12-11 15:52] VITALS: BP 128/70
[2021-12-11] MEDS: traZODone 100 MG TAB PO PRN (20:57)
[2021-12-12 06:08] VITALS: BP 125/80
[2021-12-12] MEDS: busPIRone 5 MG TAB PO SCH (08:20)
[2021-12-12] MEDS: PALIPERIDONE 6 MG ER TAB (INVEGA) PO SCH (08:20)
[2021-12-12] MEDS: ADDERALL 5 MG TAB PO SCH ×2 (08:21→11:22)
[2021-12-12] MEDS: NICOTINE 21MG/24HR 1 EA TRANSDERMAL TD SCH (08:23)
[2021-12-12] MEDS: hydrOXYzine 50 MG TAB PO PRN (11:21)
[2021-12-12] MEDS ORDERED: HYDR50TA70 PO (12:21)
[2021-12-12] MEDS ORDERED: TRAZ-257 PO (12:21)
[2021-12-12] MEDS ORDERED: BUSP5TA PO (12:21)
[2021-12-12] MEDS ORDERED: PALI1TAB3 PO (12:21)
== END 2021-12-12 15:36 | disposition home or self-care (01) | DRG 885 ==
LOC: M ED 22:32 → M ED INP 12-04 17:24 → M PSY 12-04 17:58
PROVIDERS: ADMIT Psychiatry & Neurology Psychiatry; ATTEND Psychiatry & Neurology Psychiatry
DX: F20.9 Schizophrenia, unspecified (principal); F10.288 Alcohol dependence with other alcohol-induced disorder; F17.210 Nicotine dependence, cigarettes, uncomplicated; Z81.8 Family history of other mental and behavioral disorders; F90.9 Attention-deficit hyperactivity disorder, unspecified type; Z20.822 Contact with and (suspected) exposure to COVID-19; Z79.899 Other long term (current) drug therapy

== ENCOUNTER → 2022-02-27 | Outpatient (CLI) | payer MEDICARE ==
[~2022-02-27] MED LIST changes: +ADDE20TA PO; +BUSP5TA PO; +HYDR50CA2 PO; +HYDR50TA70 PO; +MED REC COMMENT; +PALI1TAB3 PO; +TRAZ-252 PO; +TRAZ-257 PO
== END ==
LOC: M LAB 10:46
PROVIDERS: ATTEND Family Medicine
DX: R53.83 Other fatigue (principal)

== ENCOUNTER 2022-09-24 20:23 | Inpatient (IN) | payer MEDICAID, MEDICARE ==
[~2022-09-24] VITALS: Ht 188 cm; Wt 81.8 kg
[2022-09-24 21:54] LABS: HEMATOCRIT 43.7 % (42.0-52.0); HEMOGLOBIN 15.7 g/dl (13.5-17.5); MEAN CORPUSCULAR HEMOGLOBIN 32.9 pg (27.0-33.0); MEAN CORPUSCULAR HGB CONC 35.9 g/dl (32.0-36.5); MEAN CORPUSCULAR VOLUME 91.6 fl (80.0-96.0); PLATELET COUNT, AUTOMATED 328 10^3/uL (150-450); RED BLOOD COUNT 4.77 10^6/uL (4.30-6.10); WHITE BLOOD COUNT 16.5 10^3/uL (4.0-10.0)
[2022-09-24 21:56] LABS: ACETAMINOPHEN LEVEL < 2.0 UG/ML (10.0-20.0); ETHYL ALCOHOL (ETHANOL) < 0.003 % (0.000-0.010); SALICYLATE LEVEL < 3.0 MG/DL (<30)
[2022-09-24 22:01] LABS: PHENCYCLIDINE URINE NEGATIVE (NEGATIVE)
[2022-09-24 22:01] LABS: THYROID STIMULATING HORMONE 1.243 uIU/ML (0.55-4.78)
[2022-09-24 22:02] LABS: BARBITURATES URINE NEGATIVE (NEGATIVE); BENZODIAZEPINES URINE NEGATIVE (NEGATIVE); COCAINE METABOLITE URINE NEGATIVE (NEGATIVE); METHADONE URINE NEGATIVE (NEGATIVE); OPIATES URINE NEGATIVE (NEGATIVE)
[2022-09-24] MEDS ORDERED: NICOTINE 21MG/24HR 1 EA TRANSDERMAL TD ONE (22:10)
[2022-09-24 22:15] LABS: AMPHETAMINES LEVEL URINE POSITIVE (NEGATIVE); CANNABINOIDS URINE POSITIVE (NEGATIVE)
[2022-09-24 22:15] LABS: ALBUMIN 4.8 G/DL (3.2-5.2); ALKALINE PHOSPHATASE 105 U/L (46-116); ALT/SGPT 21 U/L (7.0-40); AST/SGOT 11 U/L (<34); BILIRUBIN,DIRECT 0.2 MG/DL (<0.4); BILIRUBIN,TOTAL 0.5 MG/DL (0.3-1.2); BLOOD UREA NITROGEN < 5 MG/DL (9-23); CALCIUM LEVEL 9.7 MG/DL (8.5-10.1); CARBON DIOXIDE LEVEL 25 MMOL/L (20-31); CHLORIDE LEVEL 104 MMOL/L (98-107); CREATININE FOR GFR 0.73 MG/DL (0.70-1.30); GLOMERULAR FILTRATION RATE > 60.0 (>60); GLUCOSE, FASTING 139 MG/DL (60-100); POTASSIUM SERUM 3.8 MMOL/L (3.5-5.1); SODIUM LEVEL 135 MMOL/L (136-145); TOTAL PROTEIN 7.4 G/DL (5.7-8.2)
[2022-09-25] MEDS ORDERED: traZODone 50 MG TAB PO PRN (00:45)
[2022-09-25] MEDS ORDERED: MAALOX 30 ML SUSP *UDC PO PRN (00:45)
[2022-09-25] MEDS ORDERED: MOM 30ML SUSPENSION UDC PO PRN (00:45)
[2022-09-25] MEDS ORDERED: ACETAMINOPHEN TAB 650MG DOSE (2X325MG) PO PRN (00:45)
[2022-09-25 01:04] VITALS: BP 135/90; TEMP 98; O2SAT 100
[2022-09-25 01:30] LABS: APPEARANCE, URINE HAZY (CLEAR); BACTERIA, URINE AUTO NEGATIVE (NEGATIVE); BILIRUBIN, URINE AUTO NEGATIVE (NEGATIVE); BLOOD, URINE BLOOD NEGATIVE (NEGATIVE); COLOR, URINE YELLOW (YELLOW); GLUCOSE, URINE (UA) AUTO NEGATIVE (NEGATIVE); GRANULAR CAST, URINE AUTO 4 /LPF; KETONE, URINE AUTO NEGATIVE (NEGATIVE); LEUKOCYTE ESTERASE, URINE AUTO NEGATIVE (NEGATIVE); MUCUS, URINE SMALL (NEGATIVE); NITRITE, URINE AUTO NEGATIVE (NEGATIVE); PROTEIN, URINE AUTO 2+ mg/dL (NEGATIVE); RBC, URINE AUTO 1 /HPF (0-3); SQUAMOUS EPITHELIAL CELL UR AU 0 /HPF (0-6); UROBILINOGEN, URINE AUTO 0.2 mg/dL (0.0-2.0); WBC, URINE AUTO 1 /HPF (0-3)
[2022-09-25] MEDS ORDERED: MED REC IN PROGRESS XX SCH (10:25)
[2022-09-25] MEDS ORDERED: BUSP5TA PO (10:35)
[2022-09-25] MEDS ORDERED: ZOLO100T PO (11:06)
[2022-09-25] MEDS ORDERED: ARIP1TAB44 PO (11:06)
[2022-09-25] MEDS ORDERED: ERGO500029 PO (11:06)
[2022-09-25] MEDS ORDERED: HYDR50TA70 PO (11:06)
[2022-09-25] MEDS ORDERED: TRAZ-257 PO (11:06)
[2022-09-25] MEDS ORDERED: HOME MED LIST COMPLETE! XX SCH (11:25)
[2022-09-25] MEDS: OLANZapine ORAL DISINTEGRATING TAB 5MG PO PRN (11:27)
[2022-09-25] MEDS ORDERED: BENZTROPINE 1 MG TAB PO PRN (12:00)
[2022-09-25] MEDS: hydrOXYzine 50 MG TAB PO PRN (12:54)
[2022-09-25] MEDS: busPIRone 5 MG TAB PO SCH ×2 (12:54→21:08)
[2022-09-25] MEDS: NICOTINE 21MG/24HR 1 EA TRANSDERMAL TD SCH (12:55)
[2022-09-25] MEDS: PALIPERIDONE 6MG ER TAB (INVEGA) PO SCH ×2 (12:55→21:08)
[2022-09-25] MEDS: SERTRALINE 100 MG TAB PO SCH (12:55)
[2022-09-25] MEDS ORDERED: PALIPERIDONE PAL 234MG/1.5ML INJ (INVEGA)(FREE PSY INPT ONLY) IM ONE (14:00)
[2022-09-25 18:56] VITALS: BP 143/78; TEMP 97.7
[2022-09-26] MEDS: hydrOXYzine 50 MG TAB PO PRN ×2 (05:36→12:08)
[2022-09-26 06:32] VITALS: BP 152/86; TEMP 97.1; O2SAT 99
[2022-09-26 06:41] LABS: CHOLESTEROL RISK RATIO 3.99 (<5); HDL CHOLESTEROL 36.8 MG/DL (>40); LDL CHOLESTEROL 91.8 MG/DL (<100); NON-HDL-C 110.2 MG/DL
[2022-09-26] MEDS: busPIRone 5 MG TAB PO SCH ×2 (09:42→21:14)
[2022-09-26] MEDS: PALIPERIDONE 6MG ER TAB (INVEGA) PO SCH ×2 (09:42→21:14)
[2022-09-26] MEDS: SERTRALINE 100 MG TAB PO SCH (09:42)
[2022-09-26] MEDS: NICOTINE 21MG/24HR 1 EA TRANSDERMAL TD SCH (09:44)
[2022-09-26] MEDS: OLANZapine ORAL DISINTEGRATING TAB 5MG PO PRN (13:14)
[2022-09-26 18:56] VITALS: BP 113/67; TEMP 98
[2022-09-26] MEDS: traZODone 100 MG TAB PO PRN (21:53)
[2022-09-27 06:16] VITALS: BP 119/62; TEMP 97.8; O2SAT 98
[2022-09-27] MEDS: PALIPERIDONE 6MG ER TAB (INVEGA) PO SCH ×2 (09:40→21:05)
[2022-09-27] MEDS: busPIRone 5 MG TAB PO SCH ×2 (09:40→21:06)
[2022-09-27] MEDS: SERTRALINE 100 MG TAB PO SCH (09:40)
[2022-09-27] MEDS: buPROPion **XL** TABLET 150MG (WELLBUTRIN XL) PO SCH (09:42)
[2022-09-27] MEDS: NICOTINE 21MG/24HR 1 EA TRANSDERMAL TD SCH (09:42)
[2022-09-27 18:00] VITALS: BP 140/66; TEMP 98.2; O2SAT 100
[2022-09-27] MEDS: traZODone 100 MG TAB PO PRN (21:05)
[2022-09-28 06:23] VITALS: BP 125/81; TEMP 98.6; O2SAT 100
[2022-09-28] MEDS: busPIRone 5 MG TAB PO SCH ×2 (08:28→20:50)
[2022-09-28] MEDS: SERTRALINE 100 MG TAB PO SCH (08:28)
[2022-09-28] MEDS: PALIPERIDONE 6MG ER TAB (INVEGA) PO SCH ×2 (08:28→20:50)
[2022-09-28] MEDS: buPROPion **XL** TABLET 150MG (WELLBUTRIN XL) PO SCH (08:28)
[2022-09-28] MEDS: NICOTINE 21MG/24HR 1 EA TRANSDERMAL TD SCH (08:32)
[2022-09-28] MEDS: OLANZapine ORAL DISINTEGRATING TAB 5MG PO PRN (12:13)
[2022-09-28 18:10] VITALS: BP 150/84; TEMP 97.6
[2022-09-28] MEDS: traZODone 100 MG TAB PO PRN (20:50)
[2022-09-29 06:02] VITALS: BP 126/71; TEMP 97; O2SAT 98
[2022-09-29] MEDS ORDERED: PALIPERIDONE PAL 156MG/1ML INJ(INVEGA)(FREE PSY INPT ONLY) IM ONE (08:00)
[2022-09-29] MEDS: PALIPERIDONE 6MG ER TAB (INVEGA) PO SCH ×2 (09:33→20:55)
[2022-09-29] MEDS: busPIRone 5 MG TAB PO SCH ×2 (09:33→20:55)
[2022-09-29] MEDS: NICOTINE 21MG/24HR 1 EA TRANSDERMAL TD SCH (09:33)
[2022-09-29] MEDS: buPROPion **XL** TABLET 150MG (WELLBUTRIN XL) PO SCH (09:33)
[2022-09-29] MEDS: SERTRALINE 100 MG TAB PO SCH (09:33)
[2022-09-29] MEDS: OLANZapine ORAL DISINTEGRATING TAB 5MG PO PRN (15:38)
[2022-09-29 16:00] VITALS: BP 142/81; TEMP 97.5; O2SAT 99
[2022-09-29] MEDS: traZODone 100 MG TAB PO PRN (20:55)
[2022-09-30 06:26] VITALS: BP 154/90; TEMP 98; O2SAT 97
[2022-09-30] MEDS: busPIRone 5 MG TAB PO SCH (08:51)
[2022-09-30] MEDS: buPROPion **XL** TABLET 150MG (WELLBUTRIN XL) PO SCH (08:51)
[2022-09-30] MEDS: SERTRALINE 100 MG TAB PO SCH (08:52)
[2022-09-30] MEDS: PALIPERIDONE 6MG ER TAB (INVEGA) PO SCH (08:52)
[2022-09-30] MEDS ORDERED: OLAN5ZYD PO (09:05)
[2022-09-30] MEDS ORDERED: BENZ1TAB5 PO (09:05)
[2022-09-30] MEDS ORDERED: INVE234I IM (09:05)
[2022-09-30] MEDS ORDERED: NICO21PAT TD (09:05)
[2022-09-30] MEDS ORDERED: BUPR150T12 PO (09:05)
[2022-09-30] MEDS ORDERED: ARIP1TAB PO (09:05)
[2022-09-30] MEDS ORDERED: PALI1TAB3 PO (09:05)
[2022-09-30] MEDS ORDERED: ZOLO100T PO (09:05)
[2022-09-30] MEDS: NICOTINE 21MG/24HR 1 EA TRANSDERMAL TD SCH (09:15)
== END 2022-09-30 10:38 | disposition home or self-care (01) | DRG 750 ==
LOC: M ED 20:23 → M ED INP 09-25 00:45 → M PSY 09-25 01:12
PROVIDERS: ADMIT Student in an Organized Health Care Education/Training Program; ATTEND Student in an Organized Health Care Education/Training Program
DX: F25.0 Schizoaffective disorder, bipolar type (principal); F15.151 Other stimulant abuse with stimulant-induced psychotic disorder with hallucinations; F12.10 Cannabis abuse, uncomplicated; F17.200 Nicotine dependence, unspecified, uncomplicated; F11.10 Opioid abuse, uncomplicated; F14.10 Cocaine abuse, uncomplicated; F10.10 Alcohol abuse, uncomplicated; Z79.899 Other long term (current) drug therapy; F90.9 Attention-deficit hyperactivity disorder, unspecified type

== ENCOUNTER → 2023-11-16 | Outpatient (CLI) | payer OTHER ==
[~2023-11-16] MED LIST changes: +ARIP1TAB PO; +ARIP1TAB44 PO; +BENZ1TAB5 PO; +BUPR150T12 PO; +E-Z-GAS II EFFERVESCENT PACKET (SODIUM BICARB./CITRIC ACID/SIMETHICONE) As Ordered ONE; +E-Z-HD 98% w/w 340GM SUSP BTL As Ordered ONE; +E-Z-PAQUE 96% w/w SUSP 176GM BTL As Ordered ONE; +ERGO500029 PO; +INVE234I IM; -MIRT-62; +MIRT-88; +OLAN5ZYD PO; +ZOLO100T PO
[2023-11-16 07:48] LABS: HEMATOCRIT 42.7 % (42.0-52.0); HEMOGLOBIN 15.3 g/dl (13.5-17.5); MEAN CORPUSCULAR HEMOGLOBIN 34.8 pg (27.0-33.0); MEAN CORPUSCULAR HGB CONC 35.8 g/dl (32.0-36.5); PLATELET COUNT, AUTOMATED 248 10^3/uL (150-450); WHITE BLOOD COUNT 4.8 10^3/uL (4.0-10.0)
[2023-11-16 07:58] LABS: ALBUMIN 4.1 G/DL (3.2-5.2); ALKALINE PHOSPHATASE 94 U/L (46-116); ALT/SGPT 41 U/L (7.0-40); AST/SGOT 39 U/L (<34); BILIRUBIN,TOTAL 1.3 MG/DL (0.3-1.2); BLOOD UREA NITROGEN 7 MG/DL (9-23); CALCIUM LEVEL 9.6 MG/DL (8.5-10.1); CARBON DIOXIDE LEVEL 27 MMOL/L (20-31); CHLORIDE LEVEL 104 MMOL/L (98-107); CHOLESTEROL LEVEL 205 MG/DL (<200); CHOLESTEROL RISK RATIO 2.87 (<5); CREATININE FOR GFR 0.84 MG/DL (0.70-1.30); GLOMERULAR FILTRATION RATE > 60.0 (>60); GLUCOSE, FASTING 93 MG/DL (60-100); HDL CHOLESTEROL 71.4 MG/DL (>40); HEMOGLOBIN A1c 4.4 % (4.0-6.0); LDL CHOLESTEROL 117.2 MG/DL (<100); NON-HDL-C 133.6 MG/DL; POTASSIUM SERUM 3.7 MMOL/L (3.5-5.1); PROSTATIC SPECIFIC AG MONITOR 0.65 NG/ML (< 4.00); SODIUM LEVEL 135 MMOL/L (136-145); TOTAL PROTEIN 7.2 G/DL (5.7-8.2); TRIGLYCERIDES LEVEL 82 MG/DL (<150)
[2023-11-16 08:02] LABS: TESTOSTERONE 734 NG/DL (241-827); THYROID STIMULATING HORMONE 2.116 uIU/ML (0.55-4.78)
== END ==
LOC: M RAD 06:42
PROVIDERS: ATTEND Family Medicine
DX: D64.9 Anemia, unspecified (principal); E03.9 Hypothyroidism, unspecified; R53.83 Other fatigue; R10.9 Unspecified abdominal pain